=== PATIENT | male | born 1990 | race African-American/Black ===

== ENCOUNTER 2016-12-20 08:34 | Emergency (ER) | payer OTHER ==
[~2016-12-20] VITALS: Ht 188 cm; Wt 110.0 kg
[~2016-12-20 08:34] MED LIST: AMOXICILLIN500 MG OR; FLEXERIL PO; NAPROSYN500 MG OR; NAPROSYN500 MG PO; NO MEDS; PREVACID30 M2 PO; ZOFRAN ODT8 MG PO
[2016-12-20 08:57] VITALS: BP 118/65
[2016-12-20] MEDS ORDERED: AMOXICILLIN500 M2 PO (09:07)
[2016-12-20] MEDS ORDERED: ANUCORT-HC25 MG RE (09:07)
[2016-12-20] MEDS ORDERED: PERCOCET 5/325M1 TAB PO (09:07)
[2016-12-20] MEDS ORDERED: MIRALAX3350 N1 PO (09:07)
== END 2016-12-20 09:11 | disposition home or self-care (01) | DRG 395 ==
LOC: ED 08:34
DX: K60.2 Anal fissure, unspecified (principal); K59.00 Constipation, unspecified; K62.89 Other specified diseases of anus and rectum

== ENCOUNTER 2017-12-22 11:29 | Emergency (ER) | payer OTHER ==
[~2017-12-22] VITALS: Ht 188 cm; Wt 118.2 kg
[~2017-12-22 11:29] MED LIST changes: +AMOXICILLIN500 M2 PO; +ANUCORT-HC25 MG RE; +MIRALAX3350 N1 PO; +PERCOCET 5/325M1 TAB PO
[2017-12-22 13:56] LABS: URINE BILIRUBIN - DIPSTICK NEGATIVE (NEGATIVE); URINE BLOOD DIPSTICK SMALL (NEGATIVE); URINE COLOR YELLOW; URINE GLUCOSE - DIPSTICK NEGATIVE (NEGATIVE); URINE KETONE NEGATIVE (NEGATIVE); URINE NITRITE - DIPSTICK NEGATIVE (Negative); URINE PH 6.5 (4.5-8.0); URINE PROTEIN - DIPSTICK TRACE mg/dL (NEG-TRACE)
[2017-12-22 13:57] LABS: URINE CLARITY CLOUDY; URINE LEUK ESTERASE MODERATE (NEGATIVE)
[2017-12-22 14:17] LABS: URINE BACTERIA FEW hpf; URINE SQUAMOUS EPITHELIAL CELL FEW EPI/hpf (0-FEW); URINE WBC TNTC WBC/hpf (0-5)
[2017-12-22] MEDS ORDERED: DOXYCYC MONO100 M1 PO (14:59)
[2017-12-22 15:19] VITALS: BP 129/71
== END 2017-12-22 15:19 | disposition home or self-care (01) | DRG 690 ==
LOC: ED 11:29
PROVIDERS: Emergency Medicine
DX: A54.01 Gonococcal cystitis and urethritis, unspecified (principal); E11.9 Type 2 diabetes mellitus without complications; F17.210 Nicotine dependence, cigarettes, uncomplicated

== ENCOUNTER 2018-12-23 13:30 | Emergency (ER) | payer OTHER ==
[~2018-12-23] VITALS: Ht 188 cm; Wt 118.2 kg
[~2018-12-23 13:30] MED LIST changes: +DOXYCYC MONO100 M1 PO
[2018-12-23] MEDS ORDERED: ANUCORT-HC25 MG RE (14:48)
[2018-12-23] MEDS ORDERED: PREP H HC1 % EX (14:48)
[2018-12-23 14:55] VITALS: BP 132/73
[2018-12-26] MEDS ORDERED: ANUCORT-HC25 MG RE (17:35)
== END 2018-12-23 14:55 | disposition home or self-care (01) ==
LOC: ED 13:30
DX: K64.4 Residual hemorrhoidal skin tags (principal); K62.89 Other specified diseases of anus and rectum

== ENCOUNTER 2019-03-19 20:07 | Emergency (ER) | payer OTHER ==
[~2019-03-19] VITALS: Ht 188 cm; Wt 150.0 kg
[~2019-03-19 20:07] MED LIST changes: +PREP H HC1 % EX
[2019-03-19] MEDS ORDERED: IBUPROFEN600 MG PO (21:52)
[2019-03-19] MEDS ORDERED: ORPHENADRINE C100 MG PO (21:52)
[2019-03-19 22:10] VITALS: BP 136/78
== END 2019-03-19 22:10 | disposition home or self-care (01) ==
LOC: ED 20:07
DX: S76.911A Strain of unspecified muscles, fascia and tendons at thigh level, right thigh, initial encounter (principal); X50.1XXA Overexertion from prolonged static or awkward postures, initial encounter; Y92.810 Car as the place of occurrence of the external cause

== ENCOUNTER 2019-03-23 17:43 | Observation (INO) | payer OTHER ==
[~2019-03-23] VITALS: Ht 188 cm; Wt 112.8 kg
[~2019-03-23 17:43] MED LIST changes: +IBUPROFEN600 MG PO; +ORPHENADRINE C100 MG PO
[2019-03-23 20:28] LABS: IMMATURE GRANULOCYTES 0.8 % (0.0-5.0); MEAN CELL VOLUME 85.7 fL CALC (80.0-100.0); MEAN CORPUSCULAR HGB 29.1 pG CALC (26.0-32.0); MEAN CORPUSCULAR HGB CONC 33.9 g/L CALC (32.0-36.0); NEUT# 4.89 thou/uL (1.82-7.42); RED BLOOD COUNT 5.16 mill/uL (4.70-6.10); RED CELL DISTRI WIDTH 12.4 % (11.5-15.5)
[2019-03-23 20:29] LABS: HEMATOCRIT 44.2 % (39.0-50.0)
[2019-03-23 20:46] LABS: ACT PARTIAL THROMBO TIME 27.4 SECONDS (20.0-32.5); PROTHROMBIN TIME 10.1 SECONDS (9.0-12.5)
[2019-03-23 20:48] LABS: ALKALINE PHOSPHATASE 98 u/l (38-126); BUN 14 mg/dL (9-20); BUN/CREATININE RATIO 14 (12-20 (CALC)); CARBON DIOXIDE 27 mmol/l (22-30); CHLORIDE 107 mmol/l (95-108); GFR > 60 ML/MIN (>=60 (CALC)); GFR FOR AFR.AMER. > 60 ML/MIN (>=60 (CALC)); SGOT/AST 15 u/l (17-59); SODIUM 141 mmol/l (137-146); TOTAL PROTEIN 6.9 g/dL (6.3-8.2)
[2019-03-23 20:50] LABS: ANION GAP 11 (6-22 (CALC)); POTASSIUM 4.1 mmol/l (3.5-5.1)
[2019-03-23 20:51] LABS: ALBUMIN 3.7 g/dL (3.2-5.0); BILIRUBIN, TOTAL 0.5 mg/dL (0.0-1.4)
[2019-03-23 21:00] LABS: MYOGLOBIN 33 ng/mL (0 - 121)
[2019-03-23 22:55] VITALS: BP 126/77
[2019-03-24 00:10] VITALS: BP 110/57
[2019-03-24 04:05] VITALS: BP 110/58
[2019-03-24 06:22] LABS: URINE BILIRUBIN - DIPSTICK NEGATIVE (NEGATIVE); URINE BLOOD DIPSTICK TRACE-INTACT (NEGATIVE); URINE COLOR YELLOW; URINE GLUCOSE - DIPSTICK NEGATIVE (NEGATIVE); URINE KETONE NEGATIVE (NEGATIVE); URINE NITRITE - DIPSTICK NEGATIVE (Negative); URINE PROTEIN - DIPSTICK TRACE mg/dL (NEG-TRACE); URINE SPECIFIC GRAVITY 1.025
[2019-03-24 06:33] LABS: URINE LEUK ESTERASE MODERATE (NEGATIVE)
[2019-03-24 06:58] LABS: URINE BACTERIA FEW hpf; URINE MUCUS MODERATE hpf (NONE-FEW); URINE WBC TNTC WBC/hpf (0-5)
[2019-03-24 08:49] VITALS: BP 125/69
[2019-03-24 11:04] VITALS: BP 118/61
[2019-03-24 15:30] VITALS: BP 137/69
[2019-03-24 19:10] VITALS: BP 137/61
[2019-03-25 00:16] VITALS: BP 114/70
[2019-03-25 04:41] VITALS: BP 120/69
[2019-03-25 05:46] LABS: HEMATOCRIT 43.5 % (39.0-50.0); HEMOGLOBIN 14.6 g/dl (14.0-18.0); IMMATURE GRANULOCYTES 1.3 % (0.0-5.0); MEAN CELL VOLUME 86.3 fL CALC (80.0-100.0); MEAN CORPUSCULAR HGB CONC 33.6 g/L CALC (32.0-36.0); NEUT# 3.8 thou/uL (1.82-7.42); RED BLOOD COUNT 5.04 mill/uL (4.70-6.10); RED CELL DISTRI WIDTH 12.5 % (11.5-15.5)
[2019-03-25 06:40] LABS: ALBUMIN 3.4 g/dL (3.2-5.0); ALKALINE PHOSPHATASE 88 u/l (38-126); ANION GAP 11 (6-22 (CALC)); BILIRUBIN, TOTAL 0.6 mg/dL (0.0-1.4); BUN 11 mg/dL (9-20); BUN/CREATININE RATIO 10 (12-20 (CALC)); CARBON DIOXIDE 28 mmol/l (22-30); CHLORIDE 104 mmol/l (95-108); GFR > 60 ML/MIN (>=60 (CALC)); GFR FOR AFR.AMER. > 60 ML/MIN (>=60 (CALC)); MAGNESIUM 1.7 mg/dL (1.6-2.3); POTASSIUM 4.4 mmol/l (3.5-5.1); SGOT/AST 14 u/l (17-59); SODIUM 138 mmol/l (137-146); TOTAL PROTEIN 6.3 g/dL (6.3-8.2)
[2019-03-25 08:31] VITALS: BP 121/80
[2019-03-25 11:55] VITALS: BP 121/76
== END 2019-03-25 14:28 | disposition home or self-care (01) ==
LOC: ED 17:43 → ED-I 21:10 → ED 21:41 → MS2 21:42
PROVIDERS: Emergency Medicine; Internal Medicine Nephrology; ADMIT Internal Medicine; ATTEND Internal Medicine
DX: I82.411 Acute embolism and thrombosis of right femoral vein (principal); I82.441 Acute embolism and thrombosis of right tibial vein; I82.431 Acute embolism and thrombosis of right popliteal vein; F81.9 Developmental disorder of scholastic skills, unspecified; M79.604 Pain in right leg; M79.89 Other specified soft tissue disorders
CPT/HCPCS: G0378; J1650

== ENCOUNTER 2019-03-27 10:41 | Emergency (ER) | payer OTHER ==
[~2019-03-27] VITALS: Ht 188 cm; Wt 118.2 kg
[2019-03-27 11:33] LABS: HEMATOCRIT 45.9 % (39.0-50.0); HEMOGLOBIN 15.9 g/dl (14.0-18.0); MEAN CELL VOLUME 83.8 fL CALC (80.0-100.0); MEAN CORPUSCULAR HGB CONC 34.6 g/L CALC (32.0-36.0); NEUT# 4.38 thou/uL (1.82-7.42); RED BLOOD COUNT 5.48 mill/uL (4.70-6.10); RED CELL DISTRI WIDTH 11.9 % (11.5-15.5)
[2019-03-27 11:33] LABS: URINE BILIRUBIN - DIPSTICK NEGATIVE (NEGATIVE); URINE BLOOD DIPSTICK MODERATE (NEGATIVE); URINE COLOR YELLOW; URINE GLUCOSE - DIPSTICK NEGATIVE (NEGATIVE); URINE KETONE NEGATIVE (NEGATIVE); URINE LEUK ESTERASE TRACE (NEGATIVE); URINE NITRITE - DIPSTICK NEGATIVE (Negative); URINE PROTEIN - DIPSTICK NEGATIVE (NEG-TRACE); URINE SPECIFIC GRAVITY 1.025
[2019-03-27 11:48] LABS: INTERNATIONAL NORMALIZED RATIO 1.1 RATIO (0.7-1.3); PROTHROMBIN TIME 11.9 SECONDS (9.0-12.5)
[2019-03-27 11:49] LABS: ALBUMIN 3.9 g/dL (3.2-5.0); ALKALINE PHOSPHATASE 104 u/l (38-126); ANION GAP 10 (6-22 (CALC)); BILIRUBIN, TOTAL 0.5 mg/dL (0.0-1.4); BUN 10 mg/dL (9-20); BUN/CREATININE RATIO 10 (12-20 (CALC)); CARBON DIOXIDE 28 mmol/l (22-30); CHLORIDE 106 mmol/l (95-108); GFR > 60 ML/MIN (>=60 (CALC)); GFR FOR AFR.AMER. > 60 ML/MIN (>=60 (CALC)); POTASSIUM 4.3 mmol/l (3.5-5.1); SGOT/AST 22 u/l (17-59); SODIUM 141 mmol/l (137-146); TOTAL PROTEIN 7.1 g/dL (6.3-8.2)
[2019-03-27] MEDS ORDERED: CEPHALEXIN500 M1 PO (12:04)
[2019-03-27 12:14] VITALS: BP 144/89
== END 2019-03-27 12:21 | disposition home or self-care (01) ==
LOC: ED 10:41
PROVIDERS: Emergency Medicine
DX: N39.0 Urinary tract infection, site not specified (principal); Z86.718 Personal history of other venous thrombosis and embolism; Z79.01 Long term (current) use of anticoagulants; R31.9 Hematuria, unspecified

== ENCOUNTER 2019-06-25 14:33 | Emergency (ER) | payer OTHER ==
[~2019-06-25] VITALS: Ht 188 cm; Wt 118.8 kg
[~2019-06-25 14:33] MED LIST changes: +CEPHALEXIN500 M1 PO
[2019-06-25 16:05] VITALS: BP 130/75
== END 2019-06-25 16:05 | disposition home or self-care (01) ==
LOC: ED 14:33
DX: A64 Unspecified sexually transmitted disease (principal)
CPT/HCPCS: J0561

== ENCOUNTER 2019-09-07 18:45 | Emergency (ER) | payer OTHER ==
[~2019-09-07] VITALS: Ht 188 cm; Wt 113.0 kg
[2019-09-07 19:43] LABS: URINE BLOOD DIPSTICK NEGATIVE (NEGATIVE); URINE GLUCOSE - DIPSTICK NEGATIVE (NEGATIVE); URINE KETONE TRACE mg/dL (NEGATIVE); URINE LEUK ESTERASE NEGATIVE (NEGATIVE); URINE NITRITE - DIPSTICK NEGATIVE (Negative); URINE PH 5.5 (4.5-8.0); URINE PROTEIN - DIPSTICK NEGATIVE (NEG-TRACE); URINE SPECIFIC GRAVITY >=1.030
[2019-09-07 19:44] LABS: URINE BILIRUBIN - DIPSTICK NEGATIVE (NEGATIVE); URINE COLOR DK. YELLOW
[2019-09-07 20:10] VITALS: BP 132/83
== END 2019-09-07 20:10 | disposition home or self-care (01) ==
LOC: ED 18:45
DX: A64 Unspecified sexually transmitted disease (principal); N48.89 Other specified disorders of penis
CPT/HCPCS: J0561

== ENCOUNTER 2020-04-03 15:11 | Emergency (ER) | payer OTHER ==
[~2020-04-03] VITALS: Ht 188 cm; Wt 118.0 kg
[2020-04-03 15:57] LABS: HEMATOCRIT 44.2 % (39.0-50.0); HEMOGLOBIN 15.3 g/dl (14.0-18.0); IMMATURE GRANULOCYTES 1.1 % (0.0-5.0); MEAN CELL VOLUME 86.2 fL CALC (80.0-100.0); MEAN CORPUSCULAR HGB 29.8 pG CALC (26.0-32.0); MEAN CORPUSCULAR HGB CONC 34.6 g/dL CAL (32.0-36.0); NEUT# 3.23 thou/uL (1.82-7.42); RED BLOOD COUNT 5.13 mill/uL (4.70-6.10); RED CELL DISTRI WIDTH 12.9 % (11.5-15.5)
[2020-04-03 16:32] LABS: ACT PARTIAL THROMBO TIME 25.3 SECONDS (20.0-32.5); D-DIMER 0.44 mg/L (0.19-0.60)
[2020-04-03 16:46] LABS: ALBUMIN 3.4 g/dL (3.2-5.0); ALKALINE PHOSPHATASE 84 u/l (38-126); ANION GAP 8 (6-22 (CALC)); BILIRUBIN, TOTAL 0.4 mg/dL (0.0-1.4); BUN 11 mg/dL (9-20); BUN/CREATININE RATIO 12 (12-20 (CALC)); CARBON DIOXIDE 25 mmol/l (22-30); CHLORIDE 107 mmol/l (95-108); CREATININE 0.9 mg/dL (0.7-1.3); GFR > 60 ML/MIN (>=60 (CALC)); GFR FOR AFR.AMER. > 60 ML/MIN (>=60 (CALC)); POTASSIUM 3.5 mmol/l (3.5-5.1); SGOT/AST 21 u/l (17-59); SODIUM 137 mmol/l (137-146); TOTAL PROTEIN 6.2 g/dL (6.3-8.2)
[2020-04-03] MEDS ORDERED: ELIQUIS5 MG PO (17:19)
[2020-04-03] MEDS ORDERED: TRAMADOL HYDROC50 M1 PO (18:48)
[2020-04-03 19:02] VITALS: BP 125/72
== END 2020-04-03 19:10 | disposition home or self-care (01) ==
LOC: ED 15:11
DX: I82.411 Acute embolism and thrombosis of right femoral vein (principal); Z86.718 Personal history of other venous thrombosis and embolism
CPT/HCPCS: Q9967

== ENCOUNTER 2020-08-22 09:31 | Emergency (ER) | payer OTHER ==
[~2020-08-22] VITALS: Ht 188 cm; Wt 118.0 kg
[~2020-08-22 09:31] MED LIST changes: +ELIQUIS5 MG PO; +TRAMADOL HYDROC50 M1 PO
[2020-08-22 11:27] VITALS: BP 122/75
--- NOTE | 2020-08-23 09:39 | NUR ---
Notified patient of positive Covid results. Patient denies dyspnea or fever. Advised patient to quarantine until contacted by the [facility] with further instructions. Advised patient to return to the ED with any difficulty breathing or SOB. Patient verbalized understanding.
== END 2020-08-22 11:34 | disposition home or self-care (01) ==
LOC: ED 09:31
DX: U07.1 COVID-19 (principal)

== ENCOUNTER 2021-01-12 | Emergency (ER) | payer OTHER ==
[2021-01-12 11:05] LABS: HEMATOCRIT 45.9 % (39.0-50.0); HEMOGLOBIN 15.3 g/dl (14.0-18.0); IMMATURE GRANULOCYTES 1.3 % (0.0-5.0); MEAN CELL VOLUME 88.3 fL CALC (80.0-100.0); MEAN CORPUSCULAR HGB 29.4 pG CALC (26.0-32.0); MEAN CORPUSCULAR HGB CONC 33.3 g/dL CAL (32.0-36.0); NEUT# 3.52 thou/uL (1.82-7.42); RED BLOOD COUNT 5.2 mill/uL (4.70-6.10)
[2021-01-12 11:22] LABS: ALBUMIN 3.6 g/dL (3.2-5.0); ALKALINE PHOSPHATASE 79 u/l (38-126); ANION GAP 9 (6-22 (CALC)); BILIRUBIN, TOTAL 0.5 mg/dL (0.0-1.4); BUN 12 mg/dL (9-20); BUN/CREATININE RATIO 12 (12-20 (CALC)); CARBON DIOXIDE 27 mmol/l (22-30); CHLORIDE 106 mmol/l (95-108); GFR > 60 ML/MIN (>=60 (CALC)); GFR FOR AFR.AMER. > 60 ML/MIN (>=60 (CALC)); POTASSIUM 4.2 mmol/l (3.5-5.1); SGOT/AST 20 u/l (17-59); SODIUM 137 mmol/l (137-146); TOTAL PROTEIN 6.6 g/dL (6.3-8.2)
[2021-01-12] MEDS ORDERED: ANTI-FUNGAL12 EX (11:32)
[2021-01-12] MEDS ORDERED: KEFLEX500 M1 PO (11:32)
[2021-01-12] MEDS ORDERED: LAMISIL250 MG PO (11:32)
== END 2021-01-12 11:50 | disposition home or self-care (01) ==
PROVIDERS: Emergency Medicine
DX: B35.3 Tinea pedis (principal); L08.9 Local infection of the skin and subcutaneous tissue, unspecified; B96.89 Other specified bacterial agents as the cause of diseases classified elsewhere; F17.200 Nicotine dependence, unspecified, uncomplicated; Z86.718 Personal history of other venous thrombosis and embolism

== ENCOUNTER 2021-08-19 09:21 | Emergency (ER) | payer OTHER ==
[~2021-08-19] VITALS: Ht 188 cm; Wt 104.0 kg
[~2021-08-19 09:21] MED LIST changes: +ANTI-FUNGAL12 EX; +KEFLEX500 M1 PO; +LAMISIL250 MG PO
[2021-08-19 10:23] VITALS: BP 109/56
== END 2021-08-19 10:23 | disposition home or self-care (01) ==
LOC: ED 09:21
DX: Z20.2 Contact with and (suspected) exposure to infections with a predominantly sexual mode of transmission (principal); F17.210 Nicotine dependence, cigarettes, uncomplicated

== ENCOUNTER 2021-10-07 03:56 | Emergency (ER) | payer OTHER ==
[~2021-10-07] VITALS: Ht 188 cm; Wt 108.0 kg
[2021-10-07] MEDS ORDERED: AMOXICILLIN500 M2 PO (04:15)
[2021-10-07] MEDS ORDERED: VOLTAREN75 MG PO (04:15)
[2021-10-07 04:25] VITALS: BP 139/92
== END 2021-10-07 04:30 | disposition home or self-care (01) ==
LOC: ED 03:56
DX: K08.89 Other specified disorders of teeth and supporting structures (principal); F17.200 Nicotine dependence, unspecified, uncomplicated; Z86.718 Personal history of other venous thrombosis and embolism

== ENCOUNTER 2021-11-19 22:48 | Emergency (ER) | payer OTHER ==
[~2021-11-19] VITALS: Ht 188 cm; Wt 118.0 kg
[~2021-11-19 22:48] MED LIST changes: +VOLTAREN75 MG PO
[2021-11-19 23:11] LABS: HEMATOCRIT 46.5 % (39.0-50.0); IMMATURE GRANULOCYTES 0.4 % (0.0-5.0); MEAN CELL VOLUME 89.1 fL CALC (80.0-100.0); MEAN CORPUSCULAR HGB 30.7 pG CALC (26.0-32.0); MEAN CORPUSCULAR HGB CONC 34.4 g/dL CAL (32.0-36.0); NEUT# 3.43 thou/uL (1.82-7.42); RED BLOOD COUNT 5.22 mill/uL (4.70-6.10); RED CELL DISTRI WIDTH 12.9 % (11.5-15.5)
[2021-11-19 23:32] LABS: ALBUMIN 3.9 g/dL (3.2-5.0); ALKALINE PHOSPHATASE 90 u/l (38-126); ANION GAP 13 (6-22 (CALC)); BILIRUBIN, TOTAL 0.3 mg/dL (0.0-1.4); BUN 17 mg/dL (9-20); BUN/CREATININE RATIO 16 (12-20 (CALC)); CARBON DIOXIDE 24 mmol/l (22-30); CHLORIDE 108 mmol/l (95-108); CREATININE 1.1 mg/dL (0.7-1.3); GFR > 60 ML/MIN (>=60 (CALC)); GFR FOR AFR.AMER. > 60 ML/MIN (>=60 (CALC)); POTASSIUM 3.8 mmol/l (3.5-5.1); SGOT/AST 25 u/l (17-59); SODIUM 141 mmol/l (137-146); TOTAL PROTEIN 7.3 g/dL (6.3-8.2)
[2021-11-19 23:33] LABS: D-DIMER 0.34 mg/L (0.19-0.60)
[2021-11-19 23:37] LABS: ACT PARTIAL THROMBO TIME 22.8 SECONDS (20.0-32.5); INTERNATIONAL NORMALIZED RATIO 0.9 RATIO (0.7-1.3); PROTHROMBIN TIME 9.8 SECONDS (9.0-12.5)
[2021-11-19] MEDS ORDERED: VOLTAREN75 MG PO (23:49)
[2021-11-19 23:57] VITALS: BP 133/76
== END 2021-11-20 00:08 | disposition home or self-care (01) ==
LOC: ED 22:48
PROVIDERS: Family Medicine
DX: M79.661 Pain in right lower leg (principal); F17.200 Nicotine dependence, unspecified, uncomplicated; Z86.718 Personal history of other venous thrombosis and embolism

== ENCOUNTER 2022-01-17 12:13 | Emergency (ER) | payer OTHER ==
[~2022-01-17] VITALS: Ht 195.6 cm; Wt 109.0 kg
[2022-01-17 12:36] VITALS: BP 145/98
[2022-01-17 12:46] VITALS: BP 136/79
[2022-01-17 12:52] LABS: HEMATOCRIT 51.2 % (39.0-50.0); HEMOGLOBIN 17.7 g/dl (14.0-18.0); IMMATURE GRANULOCYTES 0.4 % (0.0-5.0); MEAN CELL VOLUME 86.8 fL CALC (80.0-100.0); MEAN CORPUSCULAR HGB CONC 34.6 g/dL CAL (32.0-36.0); NEUT# 4.18 thou/uL (1.82-7.42); RED BLOOD COUNT 5.9 mill/uL (4.70-6.10); RED CELL DISTRI WIDTH 12.9 % (11.5-15.5)
[2022-01-17 13:15] LABS: ALBUMIN 4.4 g/dL (3.2-5.0); ALKALINE PHOSPHATASE 98 u/l (38-126); ANION GAP 12 (6-22 (CALC)); BUN 12 mg/dL (9-20); BUN/CREATININE RATIO 11 (12-20 (CALC)); CARBON DIOXIDE 28 mmol/l (22-30); CHLORIDE 98 mmol/l (95-108); CPK 497 u/l (52-200); CREATININE 1.1 mg/dL (0.7-1.3); GFR > 60 ML/MIN (>=60 (CALC)); GFR FOR AFR.AMER. > 60 ML/MIN (>=60 (CALC)); POTASSIUM 3.7 mmol/l (3.5-5.1); SGOT/AST 33 u/l (17-59); SODIUM 135 mmol/l (137-146)
[2022-01-17 13:16] VITALS: BP 131/82
[2022-01-17 13:19] LABS: BILIRUBIN, TOTAL 0.7 mg/dL (0.0-1.4)
[2022-01-17 13:31] VITALS: BP 121/86
[2022-01-17 15:04] VITALS: BP 121/86
[2022-01-18] MEDS ORDERED: NAPROXEN500 MG PO (22:42)
== END 2022-01-17 15:47 | disposition home or self-care (01) ==
LOC: ED 12:13
PROVIDERS: Family Medicine
DX: E86.0 Dehydration (principal); F17.200 Nicotine dependence, unspecified, uncomplicated; Z86.718 Personal history of other venous thrombosis and embolism

== ENCOUNTER 2022-01-18 21:34 | Emergency (ER) | payer OTHER ==
[~2022-01-18] VITALS: Ht 188 cm; Wt 109.1 kg
[2022-01-18 22:10] VITALS: BP 147/74
[2022-01-18] MEDS ORDERED: NAPROXEN500 MG PO (22:42)
== END 2022-01-18 23:25 | disposition home or self-care (01) ==
LOC: ED 21:34
DX: S93.401A Sprain of unspecified ligament of right ankle, initial encounter (principal); F17.200 Nicotine dependence, unspecified, uncomplicated; X58.XXXA Exposure to other specified factors, initial encounter; Z86.718 Personal history of other venous thrombosis and embolism

== ENCOUNTER 2022-02-07 16:28 | Emergency (ER) | payer OTHER ==
[~2022-02-07] VITALS: Ht 188 cm; Wt 110.0 kg
[~2022-02-07 16:28] MED LIST changes: +NAPROXEN500 MG PO
[2022-02-07 16:55] VITALS: BP 118/74
[2022-02-07 17:02] VITALS: BP 122/75
[2022-02-07 17:16] VITALS: BP 117/67
[2022-02-07] MEDS ORDERED: EC-NAPROXEN500 MG PO (17:41)
[2022-02-07 17:45] VITALS: BP 128/89
== END 2022-02-07 18:04 | disposition home or self-care (01) ==
LOC: ED 16:28
DX: B34.9 Viral infection, unspecified (principal); H92.02 Otalgia, left ear; F17.200 Nicotine dependence, unspecified, uncomplicated; Z86.718 Personal history of other venous thrombosis and embolism; Z20.822 Contact with and (suspected) exposure to COVID-19

== ENCOUNTER 2022-05-04 09:50 | Emergency (ER) | payer OTHER ==
[~2022-05-04] VITALS: Ht 188 cm; Wt 109.0 kg
[~2022-05-04 09:50] MED LIST changes: +EC-NAPROXEN500 MG PO
[2022-05-04 09:55] VITALS: BP 131/90
[2022-05-04 10:01] VITALS: BP 125/69
[2022-05-04 10:47] VITALS: BP 125/69
== END 2022-05-04 10:58 | disposition home or self-care (01) ==
LOC: ED 09:50
DX: J11.1 Influenza due to unidentified influenza virus with other respiratory manifestations (principal); F17.200 Nicotine dependence, unspecified, uncomplicated; Z86.718 Personal history of other venous thrombosis and embolism; Z20.822 Contact with and (suspected) exposure to COVID-19

== ENCOUNTER 2023-03-26 13:45 | Emergency (ER) | payer OTHER ==
[~2023-03-26] VITALS: Ht 188 cm; Wt 109.0 kg
[2023-03-26 13:59] VITALS: BP 131/87
[2023-03-26 14:15] VITALS: BP 147/84
[2023-03-26 15:25] LABS: URINE BILIRUBIN - DIPSTICK NEGATIVE (NEGATIVE); URINE BLOOD DIPSTICK TRACE-INTACT (NEGATIVE); URINE COLOR YELLOW; URINE GLUCOSE - DIPSTICK NEGATIVE (NEGATIVE); URINE KETONE NEGATIVE (NEGATIVE); URINE LEUK ESTERASE NEGATIVE (NEGATIVE); URINE PROTEIN - DIPSTICK NEGATIVE (NEG-TRACE); URINE SPECIFIC GRAVITY >=1.030
[2023-03-26 15:29] LABS: URINE NITRITE - DIPSTICK NEGATIVE (Negative)
[2023-03-26 15:33] VITALS: BP 147/84
== END 2023-03-26 15:37 | disposition home or self-care (01) ==
LOC: ED 13:45
PROVIDERS: Nurse Practitioner
DX: A64 Unspecified sexually transmitted disease (principal); F17.200 Nicotine dependence, unspecified, uncomplicated

== ENCOUNTER 2023-10-27 13:08 | Emergency (ER) | payer OTHER ==
[~2023-10-27] VITALS: Ht 188 cm; Wt 117.0 kg
[2023-10-27 13:14] VITALS: BP 136/77
[2023-10-27] MEDS ORDERED: DOXY-CAPS100 MG PO (13:43)
[2023-10-27] MEDS ORDERED: TAM75CAP PO (14:32)
[2023-10-27 14:40] VITALS: BP 136/77
== END 2023-10-27 14:40 | disposition home or self-care (01) ==
LOC: ED 13:08
DX: J11.1 Influenza due to unidentified influenza virus with other respiratory manifestations (principal); A64 Unspecified sexually transmitted disease; F17.200 Nicotine dependence, unspecified, uncomplicated; Z86.718 Personal history of other venous thrombosis and embolism; Z20.822 Contact with and (suspected) exposure to COVID-19
CPT/HCPCS: J0561

== ENCOUNTER 2024-04-06 19:21 | Emergency (ER) | payer OTHER ==
[~2024-04-06] VITALS: Ht 188 cm; Wt 135.0 kg
[~2024-04-06 19:21] MED LIST changes: +DOXY-CAPS100 MG PO; +TAM75CAP PO
[2024-04-06] MEDS ORDERED: NAPROXEN500 MG PO (19:49)
[2024-04-06] MEDS ORDERED: CLINDAMYCIN HY150 MG PO (19:49)
[2024-04-06] MEDS ORDERED: predniSONE 20 MG/TAB PO ONE (19:50)
[2024-04-06] MEDS ORDERED: CLINDAMYCIN HCL 150 MG CAP PO ONE (19:50)
[2024-04-06] MEDS ORDERED: KETOROLAC TROMETHAMINE 30 MG/ML SDV IM ONE (19:50)
[2024-04-06 20:00] VITALS: BP 124/78
== END 2024-04-06 20:41 | disposition home or self-care (01) ==
LOC: ED 19:21
DX: K04.7 Periapical abscess without sinus (principal); F17.200 Nicotine dependence, unspecified, uncomplicated; Z86.718 Personal history of other venous thrombosis and embolism

== ENCOUNTER 2024-09-10 22:30 | Emergency (ER) | payer OTHER ==
[~2024-09-10] VITALS: Ht 188 cm; Wt 131.0 kg
[~2024-09-10 22:30] MED LIST changes: +CLINDAMYCIN HY150 MG PO
[2024-09-10] MEDS ORDERED: PROCTOZONE-HC2.5 % RE (23:18)
[2024-09-10 23:47] VITALS: BP 127/66
== END 2024-09-10 23:40 | disposition home or self-care (01) | DRG 395 ==
LOC: ED 22:30
DX: K64.4 Residual hemorrhoidal skin tags (principal); F17.200 Nicotine dependence, unspecified, uncomplicated; Z86.718 Personal history of other venous thrombosis and embolism